=== PATIENT | male | born 1995 | race American Indian/Alaskan Native ===

== ENCOUNTER 2016-09-07 01:40 | Emergency (ER) | payer SELFPAY ==
[2016-09-07 01:49] VITALS: BP 138/91
--- NOTE | 2016-09-07 03:28 | XRay Report ---
FINAL REPORT PROCEDURE: XR WRIST 3 RT TECHNIQUE: RIGHT wrist radiographs, including AP, lateral, oblique, and navicular views. HISTORY: RT WRIST INJURY W/PAIN COMPARISON: No prior studies are available for comparison. FINDINGS: Fracture(s)and/or Dislocation(s): None. Alignment: Normal. Joint space(s): Normal. Soft tissues: Normal. Bone mineralization: Normal. Foreign bodies: None. IMPRESSION: Normal Examination
--- NOTE | 2016-09-07 03:29 | XRay Report ---
FINAL REPORT PROCEDURE: XR HAND 3 RT TECHNIQUE: RIGHT hand radiographs, AP, lateral, and oblique views. CPT 25557-HO HISTORY: RT HAND INJURY W/PAIN COMPARISON: No prior studies are available for comparison. FINDINGS: Fracture (s) and/or Dislocation(s): None . Alignment: Normal . Joint space(s): Normal . Soft tissues: Normal . Bone mineralization: Normal . Foreign bodies: None . IMPRESSION: Normal Examination .
[2016-09-07] MEDS ORDERED: MOTRIN PO ONE (03:53)
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
== END 2016-09-07 05:04 | disposition home or self-care (01) ==
LOC: ED 01:40
DX: S66.911A Strain of unspecified muscle, fascia and tendon at wrist and hand level, right hand, initial encounter (principal); F17.200 Nicotine dependence, unspecified, uncomplicated; Y04.2XXA Assault by strike against or bumped into by another person, initial encounter; Y93.89 Activity, other specified; Y92.89 Other specified places as the place of occurrence of the external cause; Y99.8 Other external cause status